=== PATIENT | female | born 1990 | race Caucasian/White ===

== ENCOUNTER 2017-01-09 16:00 | Emergency (ER) | payer MEDICAID ==
[2017-01-09 16:37] LABS: BASOPHILS 0.4 % (0-2); EOSINOPHILS 1.6 % (0-7); HEMATOCRIT 40.7 % (36.0-48.0); HEMOGLOBIN 13.7 g/dL (12-16); IMMATURE GRANULOCYTES 0.4 % (0-5); LYMPHOCYTES 34.5 % (15-50); MCH 31.5 pg (26.0-34.0); MCHC 33.7 g/dL (31.0-37.0); MCV 93.6 fL (80.0-100.0); MEAN PLATELET VOLUME 10.2 fL (7.4-10.4); MONOCYTES 8.9 % (2-11); NEUTROPHILS 54.2 % (40-80); PLATELET COUNT 216 10x3/uL (130-400); RBC 4.35 10x6/uL (4.00-5.40); RDW 12.6 % (11.5-14.5); WBC 7.7 10x3/uL (4.8-10.8)
[2017-01-09 17:08] LABS: ALBUMIN 3.2 g/dL (3.4-5.0); ALKALINE PHOSPHATASE 59 U/L (46-116); ALT (SGPT) 43 U/L (10-68); BILIRUBIN - TOTAL 0.25 mg/dL (0.2-1.3); CALC OSMOLALITY 274 mosm/kg (275-300); CALCIUM 8.9 mg/dL (8.5-10.1); CARBON DIOXIDE 28.6 mmol/L (21.0-32.0); CHLORIDE - SERUM 104 mmol/L (98-107); CREATININE - SERUM 0.6 mg/dL (0.6-1.3); GLUCOSE 117 mg/dL (74-106); POTASSIUM - SERUM 4.2 mmol/L (3.5-5.1); PROTEIN - SERUM 6.4 g/dL (6.4-8.2); SODIUM 138 mmol/L (136-145); UREA NITROGEN 6 mg/dL (7-18); eGFR NON AFRICAN AMERICAN > 90 mL/min (90-120)
[2017-01-09 17:31] LABS: HCG - QUANTITATIVE (MATERNAL) 36662 mIU/mL
[2017-01-09 17:44] LABS: APPEARANCE CLEAR (CLEAR); BILIRUBIN NEGATIVE (NEGATIVE); COLOR YELLOW (YELLOW); GLUCOSE NEGATIVE (NEGATIVE); KETONE NEGATIVE (NEGATIVE); LEUKOCYTE ESTERASE NEGATIVE (NEGATIVE); NITRITE NEGATIVE (NEGATIVE); PROTEIN NEGATIVE (NEGATIVE); UROBILINOGEN NORMAL (NORMAL)
== END 2017-01-09 18:14 | disposition home or self-care (01) ==
LOC: D.ER 16:00
PROVIDERS: Emergency Medicine
DX: R10.2 Pelvic and perineal pain (principal); F41.9 Anxiety disorder, unspecified; K21.9 Gastro-esophageal reflux disease without esophagitis

== ENCOUNTER 2017-02-23 15:33 | Emergency (ER) | payer MEDICAID | END 2017-02-23 16:56 | disposition home or self-care (01) | LOC: D.ER 15:33 | DX: L02.31 Cutaneous abscess of buttock (principal) ==

== ENCOUNTER → 2017-05-23 13:38 | Outpatient (CLI) | payer MEDICAID | END | disposition home or self-care (01) | LOC: D.LDO 13:38 | DX: O36.8120 Decreased fetal movements, second trimester, not applicable or unspecified (principal); Z3A.25 25 weeks gestation of pregnancy ==

== ENCOUNTER → 2017-07-16 16:17 | Outpatient (CLI) | payer MEDICAID ==
[~2017-07-16 16:17] MED LIST: IBUPROFEN800 MG PO; PRENATAL COMPLE1 TAB PO; VITAMIN B-6200 M1 PO
[2017-08-23 12:33] VITALS: BMI 45.8
== END | disposition home or self-care (01) ==
LOC: D.LDO 16:17
DX: O24.419 Gestational diabetes mellitus in pregnancy, unspecified control (principal); Z3A.33 33 weeks gestation of pregnancy

== ENCOUNTER → 2017-07-30 15:18 | Outpatient (CLI) | payer MEDICAID ==
[2017-08-23 12:33] VITALS: BMI 45.8
== END | disposition home or self-care (01) ==
LOC: D.LDO 15:18
DX: O24.419 Gestational diabetes mellitus in pregnancy, unspecified control (principal); Z3A.35 35 weeks gestation of pregnancy

== ENCOUNTER → 2017-08-13 13:04 | Outpatient (CLI) | payer MEDICAID ==
[2017-08-23 12:33] VITALS: BMI 45.8
== END | disposition home or self-care (01) ==
LOC: D.LDO 13:04
DX: O24.419 Gestational diabetes mellitus in pregnancy, unspecified control (principal); Z3A.37 37 weeks gestation of pregnancy

== ENCOUNTER → 2017-08-20 12:27 | Outpatient (CLI) | payer MEDICAID ==
[2017-08-20 13:29] LABS: HEMATOCRIT 39.4 % (36.0-48.0); HEMOGLOBIN 13.5 g/dL (12-16); MCH 31.5 pg (26.0-34.0); MCHC 34.3 g/dL (31.0-37.0); MCV 91.8 fL (80.0-100.0); MEAN PLATELET VOLUME 10.6 fL (7.4-10.4); RBC 4.29 10x6/uL (4.00-5.40); RDW 13.7 % (11.5-14.5); WBC 10.4 10x3/uL (4.8-10.8)
[2017-08-20 13:45] LABS: CALC OSMOLALITY 274 mosm/kg (275-300); CALCIUM 9.5 mg/dL (8.5-10.1); CHLORIDE - SERUM 106 mmol/L (98-107); CREATININE - SERUM 0.4 mg/dL (0.6-1.3); GLUCOSE 78 mg/dL (74-106); POTASSIUM - SERUM 3.9 mmol/L (3.5-5.1); SODIUM 139 mmol/L (136-145); UREA NITROGEN 7 mg/dL (7-18); eGFR NON AFRICAN AMERICAN > 90 mL/min (90-120)
[2017-08-23 12:33] VITALS: BMI 45.8
== END | disposition home or self-care (01) ==
LOC: D.LDO 12:27
PROVIDERS: Obstetrics & Gynecology
DX: O24.419 Gestational diabetes mellitus in pregnancy, unspecified control (principal); Z3A.38 38 weeks gestation of pregnancy

== ENCOUNTER 2017-08-23 07:39 | Inpatient (IN) | payer MEDICAID ==
[~2017-08-23] VITALS: Ht 170.2 cm; Wt 132.4 kg
[2017-08-23 08:28] LABS: APPEARANCE HAZY (CLEAR); BILIRUBIN NEGATIVE (NEGATIVE); COLOR YELLOW (YELLOW); GLUCOSE 100 mg/dL (NEGATIVE); KETONE NEGATIVE (NEGATIVE); NITRITE NEGATIVE (NEGATIVE); PROTEIN NEGATIVE (NEGATIVE); UROBILINOGEN NORMAL (NORMAL)
[2017-08-23 08:30] LABS: BACTERIA MODERATE /hpf (NONE SEEN); CALCIUM OXALATE CRYSTALS 0-5 /hpf (NONE SEEN); EPITHELIAL CELLS 0-5 /hpf (0-5); MUCUS <1+ /lpf (NONE SEEN); WHITE CELLS - URINE OCC /hpf (0-5)
[2017-08-23 11:26] LABS: HEMATOCRIT 41.3 % (36.0-48.0); MCH 31.3 pg (26.0-34.0); MCHC 33.9 g/dL (31.0-37.0); MCV 92.2 fL (80.0-100.0); MEAN PLATELET VOLUME 10.8 fL (7.4-10.4); RBC 4.48 10x6/uL (4.00-5.40); RDW 13.8 % (11.5-14.5); WBC 10.8 10x3/uL (4.8-10.8)
[2017-08-23] MEDS ORDERED: PRENATAL COMPLE1 TAB PO (11:44)
[2017-08-23] MEDS ORDERED: VITAMIN B-6200 M1 PO (11:45)
[2017-08-23 12:33] VITALS: Ht 170.2 cm; Wt 132.4 kg
[2017-08-24 06:13] LABS: RAPID PLASMA REAGIN Non Reactive (Non Reactive)
--- NOTE | 2017-08-24 15:15 | NUR ---
REQUESTED SALINE LOCK BE REMOVED "IT'S BOTHERING ME". TAPE LOOSE, REMOVED CATHETER WITHOUT DIFFICULTY. TIP INTACT.
--- NOTE | 2017-08-24 16:54 | NUR ---
LAYING ON RIGHT SIDE. EYES CLOSED. RESPIRATIONS EVEN. FOB ASLEEP IN RECLINER CHAIR. INFANT IN NURSERY. SIDE RAILS UP X 2. CALL LIGHT IN REACH.
--- NOTE | 2017-08-24 17:05 | NUR ---
AROUSED FROM SLEEP BY Odalys HOUSTON RN. INFANT TO ROOM FOR .
--- NOTE | 2017-08-24 18:25 | NUR ---
SITTING UP IN BED EATING DINNER. VISITORS IN ROOM. DENIES NEEDING ANYTHING AT THIS TIME. SIDE RAILS UP X2, CALL LIGHT IN REACH.
[2017-08-24 19:15] VITALS: BP 140/82
--- NOTE | 2017-08-24 19:15 | NUR ---
PT. SITTING UP IN BED WITH LEGS CROSSED FILLING OUT PAPERWORK FOR NBN. NBN STAFF IN ROOM AND TAKES INFANT TO NURSERY. PT. AWAKE AND ORIENTED. SKIN WARM AND DRY. RATES PAIN A 2 OF 10 WITH RECTAL DISCOMFORT. EXPLAINED RATIONAL FOR RECTAL DISCOMFORT. BREATH SOUNDS CLEAR AND BOWEL SOUNDS AUDIBLE. PT. ASKED IF SHE COULD AMBULATE OFF UNIT. INFORMED THAT SHE COULD AMBULATE BUT ON UNIT TO INCLUDE IN FRONT OF NURSERY WINDOWS. PT. QUESTIONED IF SHE COULD GO OFF UNIT AND HER WOULD BE WITH HER. INFORMED PT. THAT IF SHE HAS BEEN MEDICATED THAT SHE WOULD NEED TO STAY ON UNIT. ATTEMPTED TO EXPLAIN LIABILITY TO THIS NURSE AND HOSPITAL IF SHE IS MEDICATED AND OUT OF BUILDING.
--- NOTE | 2017-08-24 19:25 | NUR ---
ICE WATER AND ICE CHIPS PROVIDED TO PT. FOB REMAINS WITH PT.
--- NOTE | 2017-08-24 21:00 | NUR ---
SITTING UP IN BED WORKING ON PAPERWORK. DENIES ANY NEEDS. INQUIRING ABOUT COMPLIMENTARY TREAT BOX. INFORMED WOULD SECURE FOR HER.
--- NOTE | 2017-08-24 23:15 | NUR ---
PT. HOLDING INFANT . REPORTS THAT IS GOING WELL. ICE WATER PROVIDED TO PT. FOB REQUEST PILLOW AND BLANKET AND SAME GIVEN.
--- NOTE | 2017-08-25 01:22 | NUR ---
INFANT RETURNED TO NBN. PT. AWAKE AND WITHOUT REQUEST.
--- NOTE | 2017-08-25 02:02 | NUR ---
AT PRESENT. PT. DENIES ANY NEEDS. FOB SLEEPING ON SOFA.
--- NOTE | 2017-08-25 04:25 | NUR ---
INFANT NOTED TO BE LYING IN CROOK OF MOTHER'S ARM AND PT. SLEEPING WELL . CALLED PT'S NAME TO ATTEMPT TO AWAKEN HER AND THEN SHOOK PT'S ARM GENTLY, PT. AWAKENED AND RECOMMENDATION GIVEN THAT NEEDED TO BE PUT IN OPEN CRIB. ASKED PT. IF SHE DESIRED INFANT TO RETURN TO NBN AND PT. AGREEABLE. PT. SNOORING PRIOR TO THIS NURSE LEAVING ROOM WITH INFANT. INFANT RETURNED TO NURSERY. FOB SLEEPING ON SOFA.
--- NOTE | 2017-08-25 06:26 | NUR ---
HOLDING AT PRESENT. STATES INFANT SLEEPING AND WILL NOT WAKE UP. NO STATED NEEDS AT THIS TIME.
--- NOTE | 2017-08-25 07:15 | NUR ---
ASSUME CARE OF THIS PATIENT. AROUSE FROM SLEEP, SNORING. ON CHEST. REMINDED PATIENT NOT TO SLEEP WITH INFANT IN ARMS OR BED. STATES "I TRY NOT TO" STRESSED IMPORTANCE. VERBALIZED UNDERSTANDING. SHIFT ASSESSMENT COMPLETED. IN CRIB. FOB SLEEPING ON COUCH. BREAKFAST TRAY AT BEDSIDE. DISCUSSED PAIN MANAGEMENT OPTIONS. HAS BEEN AND USING BREAST PUMP. SIDE RAILS UP X 2, CALL LIGHT IN REACH.
[2017-08-25 07:16] VITALS: BP 127/75
[2017-08-25 07:18] LABS: HEMATOCRIT 36.1 % (36.0-48.0); HEMOGLOBIN 12.3 g/dL (12-16); MCH 31.4 pg (26.0-34.0); MCHC 34.1 g/dL (31.0-37.0); MCV 92.1 fL (80.0-100.0); MEAN PLATELET VOLUME 10.5 fL (7.4-10.4); RBC 3.92 10x6/uL (4.00-5.40)
[2017-08-25 07:23] LABS: WBC 14.2 10x3/uL (4.8-10.8)
--- NOTE | 2017-08-25 07:31 | NUR ---
MOTRIN 600 MG GIVEN PO FOR C/O PERINEAL PAIN AND GENERALIZED ACHING. DISCUSSED PAIN RELIEF OPTIONS INCLUDING USE OF DERMOPLAST SPRAY, EPIFOAM/TUCKS, WARM SHOWER, AMBULATION, SITTING UP IN CHAIR. VERBALIZED UNDERSTANDING.
--- NOTE | 2017-08-25 08:31 | NUR ---
SITTING UP . STATES "I FEEL A WHOLE LOT BETTER" AFTER USING TUCKS AND EPIFOAM DIRECTED ON PERINEAL AREA. FRESH WATER GIVEN. NO ADDITIONAL REQUESTS AT THIS TIME.
--- NOTE | 2017-08-25 10:12 | NUR ---
SLEEPING ON RIGHT SIDE. RESPIRATIONS EVEN. SIDE RAILS UP X 2, CALL LIGHT IN REACH. IN NURSERY.
--- NOTE | 2017-08-25 11:01 | NUR ---
LAYING ON RIGHT SIDE, EYES OPEN. SAYS SHE JUST WOKE UP. DESIRES TO GO BACK TO SLEEP. FOB IN ROOM WITH INFANT IN CRIB. NO REQUESTS. SIDE RAILS UP X 2, CALL LIGHT WITHIN REACH. TO CALL IF ANYTHING IS NEEDED.
--- NOTE | 2017-08-25 13:20 | NUR ---
SITTING UP IN BED TALKING TO VISITORS. INFANT IN ROOM. DENIES NEEDING ANYTHING AT THIS TIME. TO CALL IF ANYTHING IS NEEDED.
--- NOTE | 2017-08-25 14:49 | NUR ---
SITTING UP IN BED HOLDING . TALKING TO VISITORS. DENIES NEEDING ANYTHING FOR PAIN AT THIS TIME. HAS BEEN USING EPIFOAM, TUCKS OR DERMOPLAST SPRAY FOR RELIEF. SAYS IT DOES NOT COMPLETELY MAKE PAIN GO AWAY BUT IT HELPS. DISCUSSED USING NIKITA BOTTLE, TO CALL WHEN READY TO TAKE A SHOWER AND LINEN CHANGE.
--- NOTE | 2017-08-25 15:50 | NUR ---
SITTING UP IN BED WITH INFANT. VISITORS IN ROOM. DENIES NEEDING ANYTHING. INSTRUCTED TO CALL WHEN READY FOR SHOWER. CALL LIGHT IN REACH.
--- NOTE | 2017-08-25 16:54 | NUR ---
SITTING ON BED. VISITORS IN ROOM. INFANT IN ROOM. DENIES NEEDING ANYTHING AT THIS TIME.
--- NOTE | 2017-08-25 18:15 | NUR ---
LAYING IN RIGHT SIDE, EYES CLOSED. RESPIRATIONS EVEN. FOB ON COUCH WITH INFANT IN ARMS. SIDERAILS UP X 2, CALL LIGHT IN REACH.
--- NOTE | 2017-08-25 18:19 | NUR ---
UP IN BATHROOM. FAMILY AND VISITORS IN ROOM WITH .
--- NOTE | 2017-08-25 18:54 | NUR ---
SITTING UP IN BED HOLDING IN ARMS. REQUESTED MOTRIN FOR 6/10 ABDOMINAL CRAMPING AND PERINEAL PAIN. HAS BEEN USING EPIFOAM, TUCKS AND DERMOPLAST NEEDED. SIDERAILS UP X 2, CALL LIGHT IN REACH. VISITORS IN ROOM. INSTRUCTED ON USE OF EPIFOAM, TUCKS AND DERMOPLAST. RECOMMEND SHOWER THIS EVENING FOR PERICARE.
--- NOTE | 2017-08-25 19:13 | NUR ---
NUMEROUS VISITORS IN ROOM. PT. HOLDING INFANT AND DENIES ANY NEEDS. INFORMED WOULD RETURN FOR ASSESSMENT WHEN SOME OF THE COMPANY LEFT. PT. STATES UNDERSTANDING.
[2017-08-25 19:35] VITALS: BP 138/77
--- NOTE | 2017-08-25 19:35 | NUR ---
PT. AWAKE AND ORIENTED. FOB PLACING INFANT IN OPEN CRIB. PT. REPORTS BM THIS AM. BREATH SOUNDS CLEAR AND BOWEL SOUNDS AUDIBLE. LOCHIA RUBRA SCANT. ABD. SOFT TO TOUCH AND NONDISTENDED. NO COMPLAINT OF TENDERNESS IN LOWER EXTREMITIES. PT. STATES PAIN IS STILL 6-7 AND STATES IT IS ABD. DISCOMFORT AND PERINEAL DISCOMFORT. PT. SITTING UP IN BED. INFORMED PT. THAT SITTING ON BOTTOM FOR LONG PERIODS WOULD CAUSE BOTTOM TO HURT MORE. ASKED PT. IF SHE HAD BEEN UP AMBULATING TODAY. PT. STATES " NOT REALLY". ENCOURAGED AMBULATION AND CHANGE IN POSITION WHILE LYING IN BED. PT. QUESTIONING WHEN SHE IS GETTING "SHOTS TOMORROW." PT. STATED WHAT SHE THOUGHT SHOTS WERE FOR. INFORMED PT. THAT COULD NOT TELL HER A TIME BUT IT WOULD BE PRIOR TO DISCHARGE. INFORMED IF THE UNIT WAS BUSY OR SOMEONE WAS DELIVERING, THAT HER SHOTS MIGHT BE DELAYED. PT. STATED UNDERSTANDING.
--- NOTE | 2017-08-25 20:55 | NUR ---
FOB TO DESK STATING PT. IS IN SHOWER AND DESIRES NICOTINE PATCH. DR. DELA CRUZ CALLED AND ORDER RECEIVED.
--- NOTE | 2017-08-25 21:11 | NUR ---
PT. OUT OF SHOWER. NICOTINE PATCH APPLIED TO LT ARM OUTER ASPECT. PT. STATES THAT SHE WAS ON CHANTIX PRIOR TO AND IT WAS WORKING FOR HER BUT SHE HAD TO STOP WITH . INQUIRED IF SHE COULD TAKE AGAIN. REQUESTED THAT SHE ASK MD WHEN SHE ROUNDS. FOB ALSO STATES THAT THEY DO NOT HAVE [facility] AND INFORMED WOULD PASS ON IN REPORT THAT THEY WOULD LIKE TO TALK WITH PERSON IN CHARGE OF ASSISTING WITH SUCH. INFORMED WOULD PASS ON IN REPORT THAT THEY WOULD LIKE TO TALK WITH SOMEONE. PT. RATES PAIN A 4 OF 10 ON PAIN SCALE. PT. CHEERFUL. ENCOURAGED TO AMBULATE IN HALLWAY. LINENS PROVIDED TO FOB FOR SOFA BED. IN OPEN CRIB IN ROOM.
--- NOTE | 2017-08-25 22:00 | NUR ---
ICE WATER AND SANDWICH TRAYS SERVED TO PT. AND FOB.
--- NOTE | 2017-08-25 23:14 | NUR ---
SITTING ON SIDE OF BED. DENIES ANY NEEDS AT THIS TIME. FOB SITTING IN CHAIR.
--- NOTE | 2017-08-25 23:18 | NUR ---
OUT IN HALLWAY WITH FOB TO WALK. GAIT STEADY.
--- NOTE | 2017-08-26 01:23 | NUR ---
AT PRESENT. RATES PAIN A 3 OF 10 ON PAIN SCALE FOR ABD. AND PERINEAL DISCOMFORT. PAIN MED ADMINISTERED ORDERED. FOB SLEEPING ON SOFA.
--- NOTE | 2017-08-26 02:20 | NUR ---
PT. STANDING BESIDE OPEN CRIB. STATES HER PAIN SUBSIDED AND RATES A 1 OF 10 ON PAIN SCALE. DENIES ANY FURTHER NEEDS.
--- NOTE | 2017-08-26 05:01 | NUR ---
LYING ON RT. SIDE WITH EYES CLOSED. RESPIRATIONS REGULAR.
--- NOTE | 2017-08-26 06:27 | NUR ---
FEEDING AT THIS TIME. DENIES ANY NEEDS.
[2017-08-26 07:26] VITALS: BP 131/72
--- NOTE | 2017-08-26 07:39 | NUR ---
ASSESSMENT DONE, DR DELA CRUZ IN ROOM TO SEE PT- NEW ORDERS RECEIVED.
--- NOTE | 2017-08-26 09:19 | NUR ---
Tena Maria Luisa 08/26/17 S: Patient states, " is going, ok, I guess. This is my first baby. I have been doing both bottle and . I do have flat nipples and asked for a breast pump so I can pump to get my nipples to draw out. This is something I want to do. I read about it somewhere or someone told me about it .One of the nurses gave me the pump to use and told me to pump on setting four. I have been using a nipple shield. No one showed me how to use it; it just figured it out myself. My nipples do hurt, the left nipple hurts worst then the right with feeding but I have been dealing with the pain for feedings, it's not that bad. Baby does latch ok. Last time I fed her was around 6:00-6:30. She will probably feed again soon. Patient states she plans on doing both bottle and breast and was hoping to get a breast pump from [facility], to help draw out her nipples while she is at home. Doesn't really have any questions at this time and verbally agrees to contact nursery staff for next feeding to verify nipple shield is used correctly, and will contact FAHEEM Carrasco following discharge to get an electric breast pump from [facility] office. O: Patient sitting up in bed eating breakfast, FOB sleep on sofa, and sleeping in crib at bedside. Praised for and asked patient to see her nipples, to see how I can help with latching. Patient does have flat nipples, left nipples does have a scab on it covering most of the nipple area and is red. Right nipple is red with no scab. Asked patient to show me how she has been applying nipple shield, observed usage incorrect. Showed how to correctly use nipple shield and observed her applying, patient is now aware of how to correctly use nipple shield. It's really important to make sure your nipple shield is applied correctly, this will help prevent sore nipple. Requested patient show me how she has been using the breast pump to verify flange size is correct during usages. Flange size on pump is correct but due to high suction speed, this is possible cause of sore nipples as well as incorrect nipple shield usage. Provided handout and explained on feeding cues, skin to skin, and positions. Explained how her body makes milk for and importance of feeding on demand. Explained how to verify infant is correctly latched to the breast and how to hold infant for feedings, tummy to tummy, nose opposite of nipple, gently support head, and allow infant to self-latch. Since initial latch is more aggressive, you can try latching to the right breast first. Feed on demand when showing feeding cues. It is normal for breastfed to want to eat more often and length of feeding can vary per . Follow doctor's instructions on how long to feed infant while in the hospital. To help heal sore nipples, verify nipple shield usage is correct and pump if needed on lowest setting to help with drawing out your nipples, if you like. Make sure is correctly latched to the breast; you may apply lanolin to your nipples following every feeding. This doesn't have to be removed prior to latching . Please contact nursery staff as needed for help with . Asked if any other questions or concerns? A: Patient states due to flat nipples, she prefers to pump to draw out nipples, and plans to do both formula and breastmilk. P: Contact nursery staff for next feeding to verify nipple shield is used correctly as well as infant latch. Luna Boyle. CLC
--- NOTE | 2017-08-26 12:02 | NUR ---
pt refuses flu vaccine. t- dap and mmr given per orders.
[2017-08-26] MEDS ORDERED: IBUPROFEN800 MG PO (13:04)
--- NOTE | 2017-08-26 13:27 | NUR ---
DC TEACHING COMPLETED. VERBAL AND WRITTEN INFORMATION GIVEN. HAS PRESCRIPTIONS AND AWARE OF F/U DATE AND TIME. QUESTIONS ANSWERED. HAS PNV AND ANTIDEPRESSENT PRESCRIPTIONS AT HOME. FOB AND INFANT IN ROOM. WAITING ON TO BE DC'D BEFORE GOING HOME. DESIRES TO REMOVE PERSONAL ITEMS TO CAR PER SELF AT THIS TIME. DC COMPLETED.
--- NOTE | 2017-08-26 14:24 | NUR ---
DC'D VIA WHEELCHAIR TO CAR WITH FOB. INFANT IN CARSEAT. ALL BELONGINGS REMOVED FROM ROOM. HAS DC INSTRUCTIONS AND WRITTEN PRESCRIPTION.
--- NOTE | 2017-09-03 07:47 | OP ---
PATIENT NAME: VALERY SPARROW MEDICAL RECORD: [id number] :91 LOCATION:[id number] ADMISSION DATE:08/23/17 SURGEON: AIDA DELA CRUZ MD DATE OF OPERATION: 08/24/2017 Delivery Note DELIVERY DATE: 08/24/2017 Spontaneous vaginal delivery of 6 pound 7 ounce female infant with 9 and 9 Apgars, no episiotomy, no laceration, spontaneous delivery, intact-appearing placenta, epidural anesthesia. ESTIMATED BLOOD LOSS: 400 cc. COMPLICATIONS OF DELIVERY: None. TRANSINT:[id number] Voice Confirmation ID: [id number] DOCUMENT ID: [id number] AIDA DELA CRUZ MD at 0747 CC: [id number] DICTATION DATE: 08/30/17 08 TUBE TRAILER FILLER: 08/30/17 0906 DIS IN 08/26/17 [id number] [place] [address]
== END 2017-08-26 14:24 | disposition home or self-care (01) | DRG 775 ==
LOC: D.LDO 07:39 → D.LD 10:36
PROVIDERS: ADMIT Obstetrics & Gynecology
PROC: 10E0XZZ Delivery of Products of Conception, External Approach (ICD-10-PCS; principal; 2017-08-24)
DX: O99.824 Streptococcus B carrier state complicating childbirth (principal); Z3A.39 39 weeks gestation of pregnancy; Z37.0 Single live birth; O24.429 Gestational diabetes mellitus in childbirth, unspecified control; O99.214 Obesity complicating childbirth; E66.01 Morbid (severe) obesity due to excess calories

== ENCOUNTER 2018-04-10 23:00 | Day surgery (SDC) | payer MEDICAID ==
[~2018-04-10] VITALS: Ht 170.2 cm; Wt 130.6 kg
--- NOTE | ~2018-04-10 | OP ---
PATIENT NAME: VALERY SPARROW MEDICAL RECORD: [id number] :91 LOCATION:D.OPS ADMISSION DATE: SURGEON: GARRICK SAMANO DATE OF OPERATION: 04/10/2018 SURGEON: Garrick Samano DPM PREOPERATIVE DIAGNOSIS: Synovitis, left subtalar joint. POSTOPERATIVE DIAGNOSIS: Synovitis, left subtalar joint. PROCEDURE: Debridement of synovitis, left subtalar joint, with implantation of [employer] subtalar joint implant. ANESTHESIA: LMA with local field block. HEMOSTASIS: Pneumatic ankle tourniquet inflated to 250 mmHg. ESTIMATED BLOOD LOSS: Minimal. MATERIALS: One 9-mm arthroereisis implant. INJECTABLES: A 10 cc of 0.5% bupivacaine plain. The patient has long-standing history of pain associated with the subtalar joint. She has not improved with conservative modalities. She is here today for surgical intervention. I have discussed with her the proposed procedure. Risks and benefits were reviewed. Complications were discussed. All questions were answered. She was appropriately consented for the above-mentioned procedure. The patient was brought to the operating room and placed on the operating table in supine position. A time-out was called with Dr. Samano, who identified the patient, the surgical site, and the surgery to be performed. Once appropriate anesthesia was obtained, the foot was prepped and draped in the usual aseptic manner. The pneumatic ankle tourniquet was inflated to 250 mmHg on a well-padded left ankle. Attention was directed to the lateral aspect of the left foot/ankle area, where a 1-inch incision was made just inferior to the lateral malleolus. This incision was carried deep through soft tissue with care being taken to retract all vital neurovascular structures. All bleeders were cauterized along the way. Through this incision, the subtalar joint was entered and the cartilage surrounding soft tissue was noted to be inflamed. The inflamed disease tissue was then sharply debrided. Next, utilizing the probe from the [employer] set, the probe was passed from distal medial to proximal lateral through the sinus tarsi, tenting the skin on the medial foot. Next, utilizing intermediate project manager's recommended technique, one 9-mm arthroereisis implant was placed into the subtalar joint. Appropriate positioning was confirmed via C-arm. The foot was then noted to rest in a less pronated manner. OPERATIVE REPORT [id number] VALERY SPARROW The surgical site was then irrigated with copious amounts of normal saline via bulb syringe. The subcutaneous tissue was reapproximated and coapted using 4-0 Vicryl. The skin was reapproximated and coapted using 4-0 nylon. A dressing consisting of Xeroform, 4 x 4's, Kerlix, and Levon bandage was applied to the left lower extremity. The pneumatic ankle tourniquet was released and cap refill time was immediate to all digits of the left foot. The patient tolerated the procedure and the anesthesia well. She left the operating room with vital signs stable and capillary refill time intact. The patient was discharged home with instructions to ice and elevate her left foot. She has a boot and crutches to offload the area. I provided her my cell phone number for any after hour difficulties. There were no complications with this procedure. We will follow up with her next week. TRANSINT:[id number] Voice Confirmation ID: [id number] DOCUMENT ID: [id number] GARRICK SAMANO at 1126 CC: [id number] DICTATION DATE: 04/10/18 1538 INDUCTOR TESTER: 04/10/18 1606 [facility] 04/10/18 [id number] [place] [address]
[2018-04-10 10:53] VITALS: BP 149/84; BMI 45.2
[2018-04-10 10:59] VITALS: BP 149/84; Ht 170.2 cm; Wt 130.6 kg
[2018-04-10 11:04] LABS: HEMATOCRIT 41.8 % (36.0-48.0); HEMOGLOBIN 14.5 g/dL (12-16); MCH 31.7 pg (26.0-34.0); MCHC 34.7 g/dL (31.0-37.0); MCV 91.5 fL (80.0-100.0); MEAN PLATELET VOLUME 10.5 fL (7.4-10.4); RBC 4.57 10x6/uL (4.00-5.40); RDW 12.9 % (11.5-14.5); WBC 8.1 10x3/uL (4.8-10.8)
[2018-04-10 11:21] LABS: HCG SERUM NEGATIVE (NEGATIVE)
[~2018-04-10 23:00] MED LIST changes: +ATIVAN1 MG PO; +FIBER-TABS625 MG PO; +LEXAPRO20 MG PO; +PHENERGAN25 M1 PO; +PROTONIX40 MG PO; +TRAZODONE HCL50 MG PO
== END 2018-04-10 23:01 | disposition home or self-care (01) ==
LOC: D.OPS 23:00
PROVIDERS: Anesthesiology; Podiatrist
DX: M65.872 Other synovitis and tenosynovitis, left ankle and foot (principal)

== ENCOUNTER 2018-06-19 09:03 | Day surgery (SDC) | payer MEDICAID ==
[~2018-06-19] VITALS: Ht 170.2 cm; Wt 129.3 kg
--- NOTE | ~2018-06-19 | OP ---
PATIENT NAME: VALERY SPARROW MEDICAL RECORD: [id number] :91 LOCATION:D.OPS ADMISSION DATE: SURGEON: GARRICK SAMANO DATE OF OPERATION: 06/19/2018 SURGEON: Garrick Samano DPM PREOPERATIVE DIAGNOSIS: Synovitis, right subtalar joint. POSTOPERATIVE DIAGNOSIS: Synovitis, right subtalar joint. PROCEDURE: Debridement of synovitis, right subtalar joint, with implantation of [employer] subtalar joint arthroereisis implant. ANESTHESIA: Local with monitored anesthesia care. HEMOSTASIS: Pneumatic ankle tourniquet inflated to 250 mmHg. ESTIMATED BLOOD LOSS: Minimal. MATERIALS: One 9-mm arthroereisis implant. INJECTABLES: A 10 cc of 0.5% bupivacaine with epinephrine. The patient has long-standing history of pain associated with the subtalar joint of the right lower extremity. She has not improved with conservative modalities. She is here today for surgical intervention. I have discussed with her the proposed procedure. Risks and benefits were discussed. Complications were reviewed. All questions were answered. She was appropriately consented for the above-mentioned procedure. She underwent the same procedure on the left lower extremity few months ago and did quite well. The patient was brought into the operating room and placed on the operating table in supine position. Time-out was called with Dr. Samano, who identified the patient, the surgical site, and the surgery to be performed. Once appropriate anesthesia was obtained, the foot was prepped and draped in the usual aseptic manner. The pneumatic ankle tourniquet was inflated to 250 mmHg on the well-padded right ankle. Attention was directed to the lateral aspect of the right foot/ankle area, where a 1-inch incision was made just inferior to the lateral malleolus. This incision was carried deep to soft tissue with care being taken to retract all vital neurovascular structures. All bleeders were cauterized along the way. Through this incision, the subtalar joint was entered and the cartilage within the joint was noted to be inflamed. The inflamed and diseased cartilage was sharply debrided. Next, utilizing the probe from the [employer] set, the probe was passed from distal medial to proximal lateral through the sinus tarsi, tenting the skin on the medial foot of the right lower extremity. Next, utilizing photo technician's recommended technique, one 9-mm arthroereisis implant was placed into the subtalar joint. Appropriate positioning was OPERATIVE REPORT [id number] VALERY SPARROW confirmed via C-arm. The foot was noted to rest in a less pronated position. The surgical site was then irrigated with copious amounts of normal sterile saline via bulb syringe. The subcutaneous tissues were then reapproximated and coapted utilizing 4-0 Vicryl. The skin was then reapproximated and coapted using 4-0 nylon. A dressing consisting of Xeroform, 4 x 4's, Kerlix, and an Levon bandage was applied to the right lower extremity. The pneumatic ankle tourniquet was deflated and cap refill time was immediate to all digits of the involved foot. The patient tolerated the procedure and anesthesia well. She left the operating room with vital signs stable and capillary refill time intact. The patient was discharged home with instructions to ice and elevate her foot. She has a boot that she is to use to offload the area. She has my cell phone number for any after hour difficulties. There were no complications with this procedure. TRANSINT:[id number] Voice Confirmation ID: [id number] DOCUMENT ID: [id number] GARRICK SAMANO at 1813 CC: [id number] DICTATION DATE: 06/19/18 1519 PALLETIZER: 06/19/18 1634 [facility] 06/19/18 [facility] [address] [place] [address]
[2018-06-19 09:22] LABS: HEMATOCRIT 41.9 % (36.0-48.0); HEMOGLOBIN 14.3 g/dL (12-16); MCH 31.1 pg (26.0-34.0); MCHC 34.1 g/dL (31.0-37.0); MCV 91.1 fL (80.0-100.0); MEAN PLATELET VOLUME 10.1 fL (7.4-10.4); RBC 4.6 10x6/uL (4.00-5.40); RDW 12.7 % (11.5-14.5); WBC 8.3 10x3/uL (4.8-10.8)
[2018-06-19 09:50] LABS: HCG URINE NEGATIVE (NEGATIVE)
[2018-06-19 10:03] VITALS: BP 128/60; Ht 170.2 cm; Wt 129.3 kg
[2018-06-19 10:22] LABS: HCG URINE NEGATIVE (NEGATIVE)
== END 2018-06-19 14:22 | disposition home or self-care (01) ==
LOC: D.OPS 09:03
PROVIDERS: Anesthesiology; Podiatrist
DX: M65.871 Other synovitis and tenosynovitis, right ankle and foot (principal); Z01.812 Encounter for preprocedural laboratory examination
CPT/HCPCS: 28090; 0335T

== ENCOUNTER 2019-03-28 17:52 | Inpatient (IN) | payer MEDICAID ==
[~2019-03-28] VITALS: Ht 170.2 cm; Wt 136.4 kg
[2019-03-28 18:54] LABS: APPEARANCE CLOUDY (CLEAR); COLOR YELLOW (YELLOW)
[2019-03-28 18:55] LABS: BACTERIA MODERATE /hpf (NONE SEEN); BILIRUBIN NEGATIVE (NEGATIVE); EPITHELIAL CELLS NSEEN /hpf (0-5); GLUCOSE NEGATIVE (NEGATIVE); KETONE NEGATIVE (NEGATIVE); NITRITE POSITIVE (NEGATIVE); PROTEIN 2+ mg/dL (NEGATIVE); UROBILINOGEN NORMAL (NORMAL); WHITE CELLS - URINE >50 /hpf (0-5)
[2019-03-28 19:05] LABS: BASOPHILS 0.3 % (0-2); EOSINOPHILS 0.2 % (0-7); HEMATOCRIT 37.3 % (36.0-48.0); HEMOGLOBIN 12.7 g/dL (12-16); IMMATURE GRANULOCYTES 0.4 % (0-5); LYMPHOCYTES 18.9 % (15-50); MEAN PLATELET VOLUME 9.9 fL (7.4-10.4); MONOCYTES 8.7 % (2-11); NEUTROPHILS 71.5 % (40-80); PLATELET COUNT 183 10x3/uL (130-400); RDW 12.9 % (11.5-14.5); WBC 10.6 10x3/uL (4.8-10.8)
[2019-03-28 19:13] LABS: HCG SERUM NEGATIVE (NEGATIVE)
[2019-03-28 19:19] LABS: ALBUMIN 3.1 g/dL (3.4-5.0); ALKALINE PHOSPHATASE 80 U/L (46-116); ALT (SGPT) 27 U/L (10-68); BILIRUBIN - TOTAL 0.28 mg/dL (0.2-1.3); CALC OSMOLALITY 276 mosm/kg (275-300); CALCIUM 8.7 mg/dL (8.5-10.1); CARBON DIOXIDE 26.7 mmol/L (21.0-32.0); CHLORIDE - SERUM 104 mmol/L (98-107); CREATININE - SERUM 0.8 mg/dL (0.6-1.3); POTASSIUM - SERUM 3.7 mmol/L (3.5-5.1); PROTEIN - SERUM 7.3 g/dL (6.4-8.2); SODIUM 138 mmol/L (136-145); UREA NITROGEN 9 mg/dL (7-18); eGFR NON AFRICAN AMERICAN > 90 mL/min (90-120)
[2019-03-28 19:20] LABS: GLUCOSE 128 mg/dL (74-106)
[2019-03-28 21:03] VITALS: BP 154/85
--- NOTE | 2019-03-28 21:45 | NUR ---
PT LAYING IN BED. NO DISTRESS NOTED AT THIS TIME. FAMILY MEMBER AT BEDSIDE. COLOR WNL. WILL CONTINUE TO MONITOR.
[2019-03-28 22:07] VITALS: BP 113/49; BP 131/60
--- NOTE | 2019-03-28 22:31 | NUR ---
PT REPORTS SHE IS FEELING BETTER AT THIS TIME. REPORTS PAIN 0/10. PT WAS GIVEN SANDWICH AT THIS TIME.
--- NOTE | 2019-03-28 23:23 | NUR ---
ARRIVED ON FLOOR VIA WC. ORIENTED TO ROOM AND CALL LIGHT. FIANCE AT SIDE. IV TO RIGHT AC INFUSING PER ORDER. ASSESSMENT AND HISTORY PER FLOW SHEET.
--- NOTE | 2019-03-28 23:55 | NUR ---
OUT OF ROOM TO CT
[2019-03-28] MEDS ORDERED: PROTONIX40 MG PO (23:56)
[2019-03-28] MEDS ORDERED: ABILIFY2 MG PO (23:56)
[2019-03-28] MEDS ORDERED: TRAZODONE HCL150 MG PO (23:57)
[2019-03-29] VITALS: BP 134/68
[2019-03-29 00:05] VITALS: BP 134/68; Ht 170.2 cm; Wt 136.4 kg
--- NOTE | 2019-03-29 00:15 | NUR ---
BACK FROM CT
[2019-03-29 05:45] VITALS: BP 150/84
[2019-03-29 07:09] LABS: ALBUMIN 2.5 g/dL (3.4-5.0); ALKALINE PHOSPHATASE 80 U/L (46-116); ALT (SGPT) 25 U/L (10-68); BILIRUBIN - TOTAL 0.25 mg/dL (0.2-1.3); CALC OSMOLALITY 285 mosm/kg (275-300); CALCIUM 7.8 mg/dL (8.5-10.1); CARBON DIOXIDE 26.4 mmol/L (21.0-32.0); CHLORIDE - SERUM 106 mmol/L (98-107); CREATININE - SERUM 0.7 mg/dL (0.6-1.3); POTASSIUM - SERUM 3.6 mmol/L (3.5-5.1); PROTEIN - SERUM 6.5 g/dL (6.4-8.2); SODIUM 142 mmol/L (136-145); UREA NITROGEN 8 mg/dL (7-18); eGFR NON AFRICAN AMERICAN > 90 mL/min (90-120)
[2019-03-29 07:10] LABS: GLUCOSE 189 mg/dL (74-106)
[2019-03-29 07:20] LABS: BASOPHILS 0.3 % (0-2); EOSINOPHILS 0.6 % (0-7); HEMATOCRIT 35.2 % (36.0-48.0); HEMOGLOBIN 11.7 g/dL (12-16); IMMATURE GRANULOCYTES 0.5 % (0-5); MCH 30.5 pg (26.0-34.0); MCHC 33.2 g/dL (31.0-37.0); MCV 91.7 fL (80.0-100.0); MEAN PLATELET VOLUME 10.3 fL (7.4-10.4); NEUTROPHILS 67.6 % (40-80); PLATELET COUNT 156 10x3/uL (130-400); RBC 3.84 10x6/uL (4.00-5.40)
[2019-03-29 08:44] VITALS: BP 159/84
[2019-03-29] MEDS ORDERED: LEVAQUIN750 MG PO (12:37)
[2019-03-29 12:59] VITALS: BP 145/70
--- NOTE | 2019-03-30 11:41 | MORECARE ---
CASE MANAGEMENT DISCHARGE SUMMARY PATIENT: VALERY SPARROW UNIT: [id number] ADM DATE: 03/28/19 AGE: 28 : 89 SEX: F ROOM/BED: D.2228 AUTHOR: [employer] PHYSICIAN: REFERRING PHYSICIAN: AMANDA COHN MD DATE OF SERVICE: 03/30/19 Discharge Plan Patient Name: VALERY SPARROW [facility] [facility] 1990 Planned Disposition: Anticipated Discharge Date: Discharge Date: 03/29/2019 Expected LOS: 0 Initial Reviewer: [email or web address] Initial Review Date: 03/30/2019 Generated: 03/30/19 12:41 pm Patient Name: VALERY SPARROW Page [phone] at 1141 All edits/amendments must be made on the electronic document DICTATION DATE: 03/30/19 1141 BRANCH LENDING OFFICER: HARRIS 03/30/19 1141 RPT#: [id number] DC DATE:03/29/19 STATUS: DIS IN [facility] [address] [facility] [place] [address] END OF REPORT
== END 2019-03-29 14:11 | disposition home or self-care (01) | DRG 690 ==
LOC: D.ER 17:52 → D.MS 22:35
PROVIDERS: Emergency Medicine; Family Medicine; ADMIT Internal Medicine Nephrology; ATTEND Internal Medicine Nephrology
DX: N10 Acute pyelonephritis (principal); F17.213 Nicotine dependence, cigarettes, with withdrawal; I10 Essential (primary) hypertension; E66.9 Obesity, unspecified; K75.81 Nonalcoholic steatohepatitis (NASH)